=== PATIENT | female | born 1955 | race Caucasian/White ===

== ENCOUNTER 2018-10-10 13:26 | Emergency (ER) | payer OTHER ==
[~2018-10-10] VITALS: Ht 149.9 cm; Wt 96.6 kg
[2018-10-10 13:31] VITALS: Ht 149.9 cm; Wt 96.6 kg
[2018-10-10 16:48] VITALS: BP 107/59
== END 2018-10-10 16:47 | disposition home or self-care (01) ==
LOC: ED 13:26
DX: G43.909 Migraine, unspecified, not intractable, without status migrainosus (principal); Z98.890 Other specified postprocedural states; Z90.89 Acquired absence of other organs
CPT/HCPCS: J0780; J1200; J2270; J7030

== ENCOUNTER 2018-10-15 11:41 | Emergency (ER) | payer OTHER ==
[~2018-10-15] VITALS: Ht 152.4 cm; Wt 96.2 kg
[2018-10-15 12:00] VITALS: Ht 152.4 cm; Wt 96.2 kg
[2018-10-15 16:17] VITALS: BP 124/66
== END 2018-10-15 16:17 | disposition home or self-care (01) ==
LOC: ED 11:41
DX: G89.29 Other chronic pain (principal); R51 Headache
CPT/HCPCS: J2270; J2765; J3010

== ENCOUNTER 2019-07-06 12:33 | Emergency (ER) | payer OTHER ==
[~2019-07-06] VITALS: Ht 152.4 cm; Wt 97.5 kg
[2019-07-06 14:26] LABS: BASOPHIL % 0.7 % (0-2); PLATELET COUNT 272 x10^3mcL (130-400); RED CELL DISTRIBUTION WIDTH 14.1 % (11.5-14.5)
[2019-07-06 14:34] LABS: CALCIUM 8.5 mg/dL (8.5-10.1); CARBON DIOXIDE 29.7 mmol/L (21-32); CHLORIDE SERUM 104 mmol/L (98-107); CREATININE SERUM 0.7 mg/dL (0.6-1.0); GFR1 > 60 mL/min; GLUCOSE SERUM 102 mg/dL (74-106); POTASSIUM SERUM 3.9 mmol/L (3.5-5.1); SODIUM SERUM 141 mmol/L (136-145)
[2019-07-06 16:35] VITALS: BP 128/70
== END 2019-07-06 16:35 | disposition home or self-care (01) ==
LOC: ED 12:33
PROVIDERS: Emergency Medicine
DX: M54.5 Low back pain (principal); M79.605 Pain in left leg; R20.0 Anesthesia of skin; W18.39XA Other fall on same level, initial encounter; Y93.89 Activity, other specified; Y92.89 Other specified places as the place of occurrence of the external cause; Y99.8 Other external cause status
CPT/HCPCS: 36415; J1885; J2270

== ENCOUNTER 2019-10-26 11:42 | Emergency (ER) | payer OTHER ==
[~2019-10-26] VITALS: Ht 152.4 cm; Wt 99.8 kg
[2019-10-26 11:49] VITALS: Ht 152.4 cm; Wt 99.8 kg
[2019-10-26 14:10] VITALS: BP 122/72
== END 2019-10-26 14:10 | disposition home or self-care (01) ==
LOC: ED 11:42
DX: G43.901 Migraine, unspecified, not intractable, with status migrainosus (principal); Z98.890 Other specified postprocedural states
CPT/HCPCS: J1885; J2765